=== PATIENT | female | born 1970 | race Caucasian/White ===

== ENCOUNTER 2020-09-16 03:04 | Outpatient (CLI) | payer BC, SELFPAY ==
[2020-09-16 19:22] LABS: SARS-CoV-2 RNA PCR Negative
== END 2020-09-16 03:05 | disposition home or self-care (01) ==
LOC: ANHCOVIDDT 03:04
PROVIDERS: Visit Provider Urology
DX: Z01.812 Encounter for preprocedural laboratory examination (principal); Z20.822 Contact with and (suspected) exposure to COVID-19
CPT/HCPCS: C9803; U0003; U0005

== ENCOUNTER 2020-09-19 01:46 | Day surgery (SDC) | payer BC, SELFPAY ==
[2020-09-11 14:39] VITALS: BMI 31.6
--- NOTE | 2020-09-14 08:31 | P.HP_ITS ---
H&P: HPI History of Present Illness Date/Time: 09/14/20 08:31 Chief Complaint: KATIA Narrative: Monet Rosales is a 50 year old female KATIA and incontinence without sensory awareness Review of Systems Review of Systems: All systems reviewed & are unremarkable except as noted in HPI and below PMFSH Social History Social History Smoking packs per day: 0.5 Smoking cigarettes per day: 10.0 Years smoked: 10 Smoking pack-years: 5.00 Smoking status: Former smoker Tobacco type: cigarettes Smoking end date: 09/05/10 Alcohol intake: current Drinks per week: 3 Spiritual care concerns: No Meds Home Medications and Allergies Home Medications Medication Instructions Recorded Confirmed Type atorvastatin 20 mg PO HS 09/11/20 09/11/20 History bupropion HCl 300 mg PO QAM 09/11/20 09/11/20 History lactobacillus combination no.8 3,000 mmu cells PO DAILY 09/11/20 09/11/20 History [Adult Probiotic] omega-3 fatty acids [Fish Oil] 1,000 mg PO DAILY 09/11/20 09/11/20 History omeprazole 20 mg PO HS 09/11/20 09/11/20 History progesterone micronized 300 mg PO HS 09/11/20 09/11/20 History sertraline 225 mg PO HS 09/11/20 09/11/20 History thyroid (pork) [[place] Thyroid] 30 mg PO QAM 09/11/20 09/11/20 History Allergies Allergy/AdvReac Type Severity Reaction Status Date / Time No Known Allergies Allergy Verified 09/11/20 14:09 Exam Const: General: cooperative and healthy appearing HENMT: Head: normal to inspection Eyes: General: appearance normal, both eyes and all related structures Neck: Neck: normal visual inspection Resp: Effort & Inspection: normal respiratory effort and able to speak in complete sentences GI: Inspection: normal to inspection : External Female Exam: normal external appearance and normal appearance of the urethra Skin: General skin exam: normal color Neuro: General: patient oriented x3 Extrem: General: normal to inspection Assessment and Plan Assessment and plan (1) KATIA (stress urinary incontinence, female): Code(s): N39.3 - Stress incontinence (female) (male) Status: Acute Assessment and Plan: urethral sling
[2020-09-19 06:34] VITALS: BP 139/48; PULSE 79; RESP 20; TEMP 36.2; O2SAT 98
[2020-09-19] MEDS: LACTATED RINGERS 1,000 ML 30 ML IV CONT (07:10)
--- NOTE | 2020-09-19 07:56 | P.PNAN_ITS ---
Anes - Initial Pre Proc Eval Procedure: Operation Date: 09/19/20 08:30 Proposed Procedures p Urethral Sling - Terell Crenshaw MD Date/Time: 09/19/20 07:56 Surgeon: Terell Crenshaw MD Pre Op Diagnosis: Stress Incontinence/ Overactive Bladder Patient Data Age: 50 Gender: F Height: 5 ft 5 in Weight: 86.2 kg Allergies Allergy/AdvReac Type Severity Reaction Status Date / Time No Known Allergies Allergy Verified 09/11/20 14:09 Home Medications Medication Instructions Recorded Confirmed Type atorvastatin 20 mg PO HS 09/11/20 09/11/20 History bupropion HCl 300 mg PO QAM 09/11/20 09/11/20 History lactobacillus combination no.8 3,000 mmu cells PO DAILY 09/11/20 09/11/20 History [Adult Probiotic] omega-3 fatty acids [Fish Oil] 1,000 mg PO DAILY 09/11/20 09/11/20 History omeprazole 20 mg PO HS 09/11/20 09/11/20 History progesterone micronized 300 mg PO HS 09/11/20 09/11/20 History sertraline 225 mg PO HS 09/11/20 09/11/20 History thyroid (pork) [[place] Thyroid] 30 mg PO QAM 09/11/20 09/11/20 History Patient hx anesthesia problems: none Family hx anesthesia problems: none [facility] Past Medical History Medical History (Updated 09/19/20 @ 07:56 by Dimitri Alejandra MD) GERD (gastroesophageal reflux disease) Hyperlipidemia Hypothyroid ELIESER (obstructive sleep apnea) Social History Social History Smoking packs per day: 0.5 Smoking cigarettes per day: 10.0 Years smoked: 10 Smoking pack-years: 5.00 Smoking status: Former smoker Tobacco type: cigarettes Smoking end date: 09/05/10 Alcohol intake: current Drinks per week: 3 Living arrangements: with family Spiritual care concerns: No Anes - Eval Final PreProcedure Day of Procedure 09/19/20 07:56 Patient weight: obese Heart: regular rate and rhythm Lungs: clear to auscultation Airway: Mallampati scale class II Neurological: alert and oriented Last oral intake: >/= 8 hours ASA classification: III Emergent: no Anesthesia type and monitoring: general GIVS and standard monitoring Informed Consent: The patient's anesthetic plan and its attendant risks and benefits were discussed with the patient/family/POA. Questions were solicited and answers provided to the satisfaction of the patient/family/POA.
--- NOTE | 2020-09-19 08:20 | WPDHPUPDATE1 ---
History and Physical Update Update Date/Time: 09/19/20 08:20 History and Physical has been reviewed, including an updated exam of the patient. There are NO changes in the patient's condition. Risks, benefits, and alternatives have been discussed and questions answered. Patient agrees to proceed with procedure.
[2020-09-19] MEDS: ceFAZolin 2 GM/D5W 50 ML 2 GM/50 ML BAG IVPB (08:26)
[2020-09-19] MEDS: LIDO 1%/EPINEPHRINE 1:100,000 50 ML VIAL 10 ML INFILTRATE (08:39)
[2020-09-19] MEDS: KETOROLAC 30 MG/ML VIAL (*BKC) 15 MG IV PUSH (08:45)
--- NOTE | 2020-09-19 08:50 | P.OP_ITS ---
Procedure Note - Detailed Date of procedure: 09/19/20 Pre-op diagnosis: Stress Incontinence/ Overactive Bladder Stress urinary incontinence Post-op diagnosis: same Procedure performed: Transobturator Mid-urethral sling Cystoscopy Description of procedure: This is a patient with confirmed stress urinary incontinence. She desires correction. She understands the risks of bleeding, infection, damage to the urinary tract, lack of cure of stress incontinence, recurrence of stress incontinence, postoperative voiding dysfunction including incontinence and retention, need for ancillary procedures to loosen remove the s ling, postoperative voiding dysfunction including retention and overactive bladder, hip and leg pain, dyspareunia, mesh related complications including exposure and extrusion. She agrees to proceed. She understands it will not help overactive bladder symptoms if present. She was correctly identified and informed consent obtained. She is brought to the operating room. She was given appropriate anesthesia. She was placed in the dorsal lithotomy position. All pressure points were padded. She was given appropriate perioperative antibiotics and a time-out performed. A Haskins catheter is placed. I marked out the thigh incisions anesthetize the skin and made those incisions. I anesthetized the anterior vaginal wall over the mid urethra. I made a 1 cm incision. I dissected out laterally taking great care not to injure the urethra or the vaginal wall. Passed the helical trocars 1st on the left and then on the right from the thigh incision towards the vaginal incision. Sling was connected to the trocars and brought out through the thigh incision. I tensioned the sling appropriately. I cut and removed the plastic sheaths. I closed the incision with 2 0 Vicryl. I then performed cystoscopy. There was no surgical artifact or abnormalities inside the bladder. The urethra was normal without surgical artifact. I cut the excess sling material. I closed the incisions with glue. She was awakened and transferred to the PACU in stable condition. Implants: Mid urethral sling Surgeon: Terell Crenshaw MD Drains: No Packing: No Pathology: none sent Complications: No immediate complications Condition: stable Disposition: PACU
[2020-09-19 08:55] VITALS: BP 129/78; PULSE 72; RESP 12; O2SAT 100
[2020-09-19] MEDS: oxyCODONE HCL (*CRX) 5 MG TAB IR PO (09:24)
[2020-09-19 09:35] VITALS: BP 117/75; PULSE 60; RESP 14
== END 2020-09-19 10:00 | disposition home or self-care (01) ==
PROVIDERS: Visit Provider Urology
PROC: (CPT 57288; principal; 2020-09-19 08:30)
DX: N39.3 Stress incontinence (female) (male) (principal); N32.81 Overactive bladder; Z87.891 Personal history of nicotine dependence
CPT/HCPCS: 57288; A9270; C1771; J0690; J1885; J2250; J2405; J2704; J3010; J7030; J7120